=== PATIENT | female | born 1995 | race Two or more races ===

== ENCOUNTER 2021-07-24 15:37 | Emergency (ER) | payer OTHER ==
[~2021-07-24] VITALS: Ht 157.5 cm; Wt 68.9 kg
[2021-07-24 18:22] VITALS: BP 125/72
== END 2021-07-24 18:23 | disposition home or self-care (01) ==
LOC: EDBD 15:37 → ER 15:37
DX: O9A.212 Injury, poisoning and certain other consequences of external causes complicating pregnancy, second trimester (principal); S80.11XA Contusion of right lower leg, initial encounter; R10.84 Generalized abdominal pain; Z3A.21 21 weeks gestation of pregnancy; V49.59XA Passenger injured in collision with other motor vehicles in traffic accident, initial encounter; Y93.89 Activity, other specified; Y92.488 Other paved roadways as the place of occurrence of the external cause; Y99.8 Other external cause status
CPT/HCPCS: 73590; 76805; 76817; 93971